=== PATIENT | female | born 1995 | race Caucasian/White ===

== ENCOUNTER 2021-02-02 09:24 | Emergency (ER) | payer BC ==
[~2021-02-02] VITALS: Ht 149.9 cm; Wt 45.9 kg
[2021-02-02] MEDS ORDERED: PROAIR HFA0.09 MG/AC IH (09:36)
[2021-02-02 10:32] VITALS: BP 98/76
== END 2021-02-02 10:36 | disposition home or self-care (01) ==
LOC: ED 09:24
DX: F07.81 Postconcussional syndrome (principal); F17.290 Nicotine dependence, other tobacco product, uncomplicated; W50.0XXA Accidental hit or strike by another person, initial encounter; Y93.67 Activity, basketball